=== PATIENT | male | born 1950 | race Caucasian/White ===

== ENCOUNTER 2018-09-24 17:09 | Emergency (ER) | payer MEDICARE, OTHER ==
[~2018-09-24] VITALS: Ht 188 cm; Wt 86.2 kg
[~2018-09-24 17:09] MED LIST: ACETAMINOPHEN-1 EAC1 ORAL; ASPIR 8181 MG ORAL; CRESTOR10 M1 ORAL; IBUPROFEN600 MG ORAL; LIPITOR40 MG ORAL; NORVASC5 MG ORAL; PROTONIX40 MG ORAL; SEROQUEL200 MG ORAL; SOMA350 MG PO; TRICOR145 MG ORAL
--- NOTE | 2018-09-24 17:10 | NUR ---
ED Nurse Note: provided a Александр english for pt's safety.
[2018-09-24] MEDS ORDERED: Activated Charcoal 50gm/240ml Btl ORAL ONE (17:45)
--- NOTE | 2018-09-24 17:46 | NUR ---
ED Nurse Note: pt presents via [facility]. pt states he lives in a [facility] care "sh[facility]" that is for [facility] and he doesnt want to stay there but that he does sleep there at night. charger tester aware. pt with belongings removed and placed in locker #2 with belongings list in chart. pt cooperative with care. pt a/ox4. states he took ocd to harm self. placed on monitor md bermudez of pt
[2018-09-24 17:47] LABS: BASOPHILS % (AUTO) 1.1 % (0.0-2.0); EOSINOPHILS % (AUTO) 1.7 % (0.0-3.0); HEMATOCRIT 39.5 % (42.0-52.0); HEMOGLOBIN 14.2 G/DL (14.2-18.0); LYMPHOCYTES % (AUTO) 32.7 % (20.0-45.0); MEAN CORPUSCULAR VOLUME 97 FL (80-99); MONOCYTES % (AUTO) 6.9 % (1.0-10.0); NEUTROPHILS % (AUTO) 57.5 % (45.0-75.0); PLATELET COUNT 102 K/UL (150-450); RED BLOOD COUNT 4.08 M/UL (4.70-6.10); RED CELL DISTRIBUTION WIDTH 10.9 % (11.6-14.8); WHITE BLOOD COUNT 4.9 K/UL (4.8-10.8)
[2018-09-24 17:57] LABS: ANION GAP 14 mmol/L (5-15); BLOOD UREA NITROGEN 13 mg/dL (7-18); CALCIUM 9.1 MG/DL (8.5-10.1); CARBON DIOXIDE 25 MMOL/L (21-32); CHLORIDE 106 MMOL/L (98-107); CREATININE 0.8 MG/DL (0.55-1.30); POTASSIUM 3.7 MMOL/L (3.5-5.1); SODIUM 144 MMOL/L (136-145)
--- NOTE | 2018-09-24 17:59 | NUR ---
ED Nurse Note: per dr awan asa po dose cancelled. cp reproduceable with movement and palpation.
[2018-09-24 18:01] LABS: ALANINE AMINOTRANSFERASE 41 U/L (12-78); ALBUMIN/GLOBULIN RATIO 1.1 (1.0-2.7); ALKALINE PHOSPHATASE 54 U/L (46-116); ASPARTATE AMINO TRANSFERASE 44 U/L (15-37); BILIRUBIN,TOTAL 0.4 MG/DL (0.2-1.0); CREATINE KINASE 172 U/L (26-308)
--- NOTE | 2018-09-24 18:01 | Diagnostic Imaging Report ---
Indication: Chest pain Comparison: None A single view chest radiograph was obtained. Findings: Mild pulmonary vascular congestion suspected. Heart size is normal. Aorta is ectatic. Bones are unremarkable. IMPRESSION: Query mild pulmonary vascular congestion. Correlate clinically
--- NOTE | 2018-09-24 18:20 | NUR ---
ED Nurse Note: pt with iv started by Ramone Velázquez rn. pt given charcoal, tolerating well. pt sleeping when no rn intervention. pt remains cooperative with rn. resp even and regular easily awakens.
--- NOTE | 2018-09-24 18:22 | NUR ---
ED Nurse Note: rn charge aware of need for sitter to observe for SI
--- NOTE | 2018-09-24 18:41 | NUR ---
ED Nurse Note: Contacted [employer] [phone] spoke with Miles regarding patient's condition.
[2018-09-24 18:54] VITALS: BP 148/80
--- NOTE | 2018-09-24 19:17 | NUR ---
ED Nurse Note: report given to zachery barry, assuming care. pt awaiting sitter, rn aware. pt remains calm and cooperative.
--- NOTE | 2018-09-24 19:30 | NUR ---
ED Nurse Note: RECIEVED REPORT FROM CHANDA PAULINO TO [facility], PT IS IN BED RESTING QUIETLY, AWAKE, ALERT AND ORIENTED X 4, PT IS CALM AND COOPERTIVE, SITTER AT BEDSIDE, PT HERE FOR OD ON SEROQUEL, PT HAS MEAL TRAY AND APPEARS TO HAVE EATEN, WHEN ASKED PT STATES YES, DENIES ABDOMINAL PAIN OR ANY PAIN, WILL [facility]UME CARE ORDERD AND CLOSELY MONITOR.
[2018-09-24 20:00] VITALS: BP 144/91
[2018-09-24] MEDS ORDERED: Morphine Sulfate 4mg/ml Inj (IV USE ONLY) IVP ONE (20:00)
--- NOTE | 2018-09-24 20:00 | NUR ---
ED Nurse Note: PT CONTINUES TO REST QUIETLY IN BED, V/S STBLE, PT FURTHER ASSESSED AND DENIES SUICIDAL IDEATIONS WITH PILL INGESTION, PT STATES HE TOOK THEM FOR CHEST PAIN, PT HAS PSYCH HISTORY, DENIES ANY AUDITORY OR VISUAL HALLUCINATIONS ALSO, PT WILL REMAIN ON SUICIDAL PRECAUTIONS AND SITTER AT BEDSIDE FOR CLOSE OBSERVATION.
--- NOTE | 2018-09-24 20:20 | Emergency Room Report ---
History of Present Illness General Chief Complaint: Chest Pain Source: Patient (Hao Haynes MD) Present Illness HPI 68-year-old male presents ED for evaluation. Patient brought in by EMS complaining of chest pain since this morning. Pain is left-sided, sharp, 7 out of 10, nonradiating. Also states that he took 25 tablets of Seroquel about one hour prior to arrival. Patient states he threw up after ingesting the pills. Patient cannot provide any additional history at this time. No other aggravating relieving factors. Denies any other associated symptoms (Hao Haynes MD) Allergies: Coded Allergies: No Known Allergies (Unverified , 03/20/13) Patient History Past Medical History: HTN, psych hx Past Surgical History: none Pertinent Family History: none Social History: Denies: smoking, alcohol use, drug use Immunizations: UTD Reviewed Nursing Documentation: PMH: Agreed; PSxH: Agreed (Hao Haynes MD) Nursing Documentation-PMH Hx Cardiac Problems: Yes Hx Hypertension: Yes Hx Cancer: No Hx Gastrointestinal Problems: No - gallbladder removal Hx Numbness: Yes - NEUROPATHY (Hao Haynes MD) Review of Systems All Other Systems: limited (Hao Haynes MD) Physical Exam Vital Signs Date Time Temp Pulse Resp B/P (MAP) Pulse Ox O2 Delivery O2 Flow Rate FiO2 09/24/18 17:09 98.1 130 16 96 Room Air 09/24/18 18:54 148/80 Sp02 EP Interpretation: reviewed, normal General Appearance: alert, GCS 15, non-toxic, lethargic Head: normocephalic, atraumatic Eyes: bilateral eye normal inspection, bilateral eye PERRL ENT: hearing grossly normal, normal pharynx, no angioedema, normal voice Neck: full range of motion, supple/symm/no masses Respiratory: lungs clear, normal breath sounds, speaking full sentences, other - L anterior reproducible chest wall pain Cardiovascular #1: no edema, tachycardia Cardiovascular #2: 2+ carotid (R), 2+ carotid (L), 2+ radial (R), 2+ radial (L) , 2+ dorsalis pedis (R), 2+ dorsalis pedis (L) Gastrointestinal: normal bowel sounds, non tender, soft, non-distended, no guarding, no rebound Rectal: deferred Genitourinary: normal inspection, no CVA tenderness Musculoskeletal: back normal, gait/station normal, normal range of motion, non- tender Neurologic: other - lethargic Psychiatric: memory normal, no delusions, depressed affect, anxious Reflexes: 3+ bicep (R), 3+ bicep (L), 3+ tricep (R), 3+ tricep (L), 3+ knee (R) , 3+ knee (L) Skin: normal color, no rash, warm/dry, well hydrated Lymphatic: no adenopathy (Hao Haynes MD) Medical Decision Making Diagnostic Impression: Primary Impression: Overdose Qualified Codes: T50.902A - Poisoning by unspecified drugs, medicaments and biological substances, intentional self-harm, initial encounter Additional Impressions: Chest pain Qualified Codes: R07.9 - Chest pain, unspecified Alcoholism /alcohol abuse ER Course This patient was signout to me. He had overdosed on Seroquel. Initially he was tachycardic but now after 6 hours of observation, heart rate is normalized. He is now medically clear for psychiatric evaluation. (Sami Valerio MD) EKG Diagnostic Results Rate: tachycardiac Rhythm: NSR ST Segments: no acute changes ASA given to the pt in ED: No (Hao Haynes MD) Rhythm Strip Diag. Results EP Interpretation: yes Rhythm: NSR, no PVC's, no ectopy (Hao Haynes MD) Last Vital Signs Date Time Temp Pulse Resp B/P (MAP) Pulse Ox O2 Delivery O2 Flow Rate FiO2 09/24/18 18:54 98.1 126 16 148/80 97 Room Air (Hao Haynes MD) Disposition: XFER TO PSYCH HOSP/UNIT Condition: Stable Referrals: [facility],REFERRING (PCP) Hao Haynes MD September 24, 2018 20:20 Sami Valerio MD September 24, 2018 23:28
[2018-09-24 21:00] VITALS: BP 114/76
--- NOTE | 2018-09-24 21:00 | NUR ---
ED Nurse Note: PT CONTINUES TO REST QUIETLY IN BED, SITTER AT BEDSIDE, NO ACUTE CHANGES OR INCREASED DISTRESS, NO SOB OR LABORED BREATHING, HEART RATE IS DECREASING, REMAINS ON CARDIAC MONITORING, IV SITE PATENT, WILL CONTINUE TO CLOSLEY MONITOR.
[2018-09-24 22:00] VITALS: BP 109/68
[2018-09-24 23:00] VITALS: BP 117/77
--- NOTE | 2018-09-24 23:00 | NUR ---
ED Nurse Note: PT CONTINUES TO REST QUIETLY, AROUSES EASILY TO VERBAL STIMULI, V/S STBLE, NO CHAGNES OR INCREASED DISTRESS, SITTER REMAINS AT BEDSIDE FOR SAFETY PRECAUTIONS, PT DENIES SI, HI, OR ANY CHANGES, WILL CONTINUE TO CLOSELY MONITOR, PT HAS ROOM CHANGE IN DEPARTMENT, SITTER REMAINS.
[2018-09-25 01:00] VITALS: BP 117/77
--- NOTE | 2018-09-25 01:00 | NUR ---
ED Nurse Note: PT CONTINUES TO REST QUIETLY IN BED, SLEEPING, AROUSES EASILY TO VERBAL STIMULI, REMAINS WITH SITTER AT BEDSIDE, NO CHANGES OR SUICIDAL ATTEMPTS MADE, V/S STABLE, NAD NOTED WILL CONTINUE TO CLOSLEY MONITOR WHILE WAITING FOR PSYCH PLACEMENT.
--- NOTE | 2018-09-25 03:00 | NUR ---
ED Nurse Note: RECIEVED CALL FROM [facility] IN [facility] TO PT BEING ACCEPTED AT THEIR FACILITY, WAITING FOR PT TO BE EVALUATED BEFORE THEY CAN ACCEPT, P.E.T TEAM TO EVALUATE PT, PT CONTINUES TO SLEEP IN BED, AROUSES EASILY, NO SOB OR LABORED BREATHING, IV SITE PATENT, WILL CONTINNUE TO CLOSELY MONITOR.
[2018-09-25 04:00] VITALS: BP 105/69
--- NOTE | 2018-09-25 06:00 | NUR ---
ED Nurse PT CONTINUES TO SLEEP, AROUSES EASILY TO VERBAL STIMULI, PT DENIES PAIN, NO SOB OR LABORED BREATHING, IV FLUIDS COMPLETED, PT TOLERATED WELL, PT DENIES NAUSEA OR ABD PAIN ASSISTED AND GIVEN URINAL, PT REMAINS ON SUICIDAL PRECAUTIONS AND WITH SITTER AT BEDSIDE, WILL CONTINUE TO MONITOR WHILE WAITING FOR PT TO HAVE PET EVAL FOR PLACEMENT.
--- NOTE | 2018-09-25 07:00 | NUR ---
ED Nurse Note: Pt remained to have a sitter at the bedside for safety. cooperative w/care at this time.provide breakfast, ate 100% of meal.
--- NOTE | 2018-09-25 07:40 | NUR ---
ED Nurse Note: PT. IS EATING BREAKFAST AND COOPERATIVE. PT.WAS ASSESSED IF HE HAS ANY PLANS OF HARMING HIS SELF. PT. STATED "IT FLUCTUATES"
[2018-09-25 07:43] VITALS: BP 163/90
--- NOTE | 2018-09-25 08:50 | NUR ---
ED Nurse Note: Notified Dr. Alcazar regarding patient's blood pressure 163/90. patient reports he has not been taking any blood pressure meds recently.
[2018-09-25] MEDS ORDERED: Lisinopril 20mg tab ORAL ONE (09:00)
[2018-09-25 10:59] VITALS: BP 146/92
--- NOTE | 2018-09-25 10:59 | NUR ---
ED Nurse Note: EVY SALGADO AT THE BEDSIDE TO EVALUATE THE PATIENT
[2018-09-25 12:57] VITALS: BP 142/91
--- NOTE | 2018-09-25 13:53 | NUR ---
ED Nurse Note: called Kushal Zaidi and report given to Faviola ARMAS. Endorsed all care to Faviola ARMAS
--- NOTE | 2018-09-25 13:55 | NUR ---
ED Nurse Note: patient's belongings were taken out from locker #2 by HOPPER OPERATOR, handed allt he belongings to the ambulance personnel
--- NOTE | 2018-09-25 13:57 | NUR ---
ED Nurse Note: patient is being transferred to [facility] via [facility] ambulance with all of his belongings.
[2018-09-25 13:58] VITALS: BP 142/91
--- NOTE | 2018-09-26 20:26 | Cardiology Report ---
APPROVED REPORT EKG Measurement Heart [id number] Sinus tachycardia Left axis deviation Abnormal ECG
== END 2018-09-25 13:50 ==
LOC: EDBD 17:09 → EMR 17:42
DX: T43.592A Poisoning by other antipsychotics and neuroleptics, intentional self-harm, initial encounter (principal); Y92.9 Unspecified place or not applicable; R07.9 Chest pain, unspecified; F10.10 Alcohol abuse, uncomplicated; I10 Essential (primary) hypertension; G62.9 Polyneuropathy, unspecified; Z90.49 Acquired absence of other specified parts of digestive tract; R00.0 Tachycardia, unspecified
CPT/HCPCS: 36415; 71045; 80053; 80307; 82550; 84484; 85025; 93005; 96360; 96361; 99284; G0480; 80329